=== PATIENT | male | born 1970 | race Hispanic/Latino ===

== ENCOUNTER 2017-05-14 18:29 | Emergency (ER) | payer OTHER ==
[2017-05-14 18:42] VITALS: BP 126/76; PULSE 75; RESP 20; TEMP 97.5; O2SAT 99
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
--- NOTE | 2017-05-15 12:43 | RAD ---
PROCEDURE: Radiographs of the Chest and Left Ribs. HISTORY: rib injury COMPARISON: None available. TECHNIQUE: Frontal radiograph of the chest and multiple oblique radiographs of the left ribs were obtained. FINDINGS: LEFT RIBS: No fracture or focal lesion visualized. LUNGS: Clear. PLEURA: No pneumothorax or pleural fluid. CARDIOVASCULAR: Normal sized heart. No pulmonary vascular congestion. OTHER FINDINGS: None. IMPRESSION: Unremarkable radiographs of the chest and left ribs. No left rib fracture.
== END 2017-05-14 20:05 | disposition home or self-care (01) ==
LOC: H.ER 18:29
DX: S29.9XXD Unspecified injury of thorax, subsequent encounter (principal); V89.2XXD Person injured in unspecified motor-vehicle accident, traffic, subsequent encounter
CPT/HCPCS: 71101; 96372; 99282; J1885

== ENCOUNTER 2017-11-23 10:29 | Emergency (ER) | payer OTHER ==
[2017-11-23 10:38] VITALS: BP 106/68; PULSE 64; TEMP 97; O2SAT 99
[2017-11-23 10:39] VITALS: BMI 22.2
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
--- NOTE | 2017-11-23 11:45 | RAD ---
PROCEDURE: Right Wrist Radiographs. HISTORY: fall, medial wrist pain COMPARISON: None. FINDINGS: BONES: Nondisplaced triquetrum fracture. JOINTS: Unremarkable. SOFT TISSUES: Dorsal soft tissue swelling. OTHER FINDINGS: None. IMPRESSION: Nondisplaced triquetrum fracture.
--- NOTE | 2017-11-23 11:46 | RAD ---
PROCEDURE: Right Hand Radiographs. HISTORY: Hand injury COMPARISON: None. FINDINGS: BONES: Nondisplaced triquetral fracture. JOINTS: Unremarkable. SOFT TISSUES: Dorsal wrist soft tissue swelling. OTHER FINDINGS: None. IMPRESSION: Nondisplaced triquetrum fracture.
[2017-11-23 12:00] VITALS: RESP 16
== END 2017-11-23 13:28 | disposition home or self-care (01) ==
LOC: H.ER 10:29
DX: S62.116A Nondisplaced fracture of triquetrum [cuneiform] bone, unspecified wrist, initial encounter for closed fracture (principal); W19.XXXA Unspecified fall, initial encounter; Y92.89 Other specified places as the place of occurrence of the external cause

== ENCOUNTER 2018-08-22 01:15 | Emergency (ER) | payer SELFPAY ==
[2018-08-22 01:16] VITALS: BMI 22.2
[2018-08-22 01:57] VITALS: BP 108/64; PULSE 76; RESP 18; TEMP 98.5; O2SAT 96
[2018-08-22] MEDS ORDERED: Lidocaine/Epi 1% 1:100000 20 ML IJ ONE (02:08)
[2018-08-22] MEDS ORDERED: Lidocaine 1% w Epi 1:100,000 Inj ONE (02:18)
--- NOTE | 2018-08-22 02:41 | ED PDOC ---
HPI: Skin/Bite Injury Time Seen by Provider: 08/22/18 01:59 Chief Complaint (Nursing): Abnormal Skin Integrity Chief Complaint (Provider): cat scratch to face History Per: Patient History/Exam Limitations: no limitations Onset/Duration Of Symptoms: Hrs Additional Complaint(s): 48 y/o M with no PMH who presents with laceration to lip from cat scratch. Pt has been cat sitting and the cat randomly attacked the patient tonight, unprovoked. Cat is known to patient and is up to date on vaccines. Pt is unsure of last tetanus vaccine. Denies dizziness, fall, VAUGHN, difficulty swallowing. He has minimal pain and has not taken anything for pain since occurrence. He placed an ointment on his lip on his way to ER. - Animal Bite Description Of The Animal: Neighbor's Pet Animal Appears: Well Animal's Immunization Status: UTD Past Medical History Reviewed: Historical Data, Nursing Documentation, Vital Signs Vital Signs: Last Vital Signs Temp 98.5 F 08/22/18 01:54 Pulse 76 08/22/18 01:54 Resp 18 08/22/18 01:54 BP 108/64 08/22/18 01:54 Pulse Ox 96 08/22/18 01:54 - Medical History PMH: No Chronic Diseases - Surgical History Surgical History: No Surg Hx - Family History Family History: States: Unknown Family Hx - Social History Current smoker - smoking cessation education provided: No Alcohol: None - Home Medications Home Medications: Ambulatory Orders Medication Instructions Recorded Ketorolac Tromethamine [Toradol] 10 mg PO TID #20 cap 05/14/17 Ibuprofen [Motrin Tab] 600 mg PO Q8 PRN #15 tab 11/23/17 Doxycycline Hyclate [Doryx] 100 mg PO BID 7 Days cap 08/22/18 - Allergies Allergies/Adverse Reactions: Allergies Allergy/AdvReac Type Severity Reaction Status Date / Time No Known Allergies Allergy Verified 08/22/18 01:54 Physical Exam - Reviewed Nursing Documentation Reviewed: Yes Vital Signs Reviewed: Yes - Physical Exam Appears: Positive for: Non-toxic Head Exam: Negative for: ATRAUMATIC (approximately 1.5cm vertical linear lac eration to cameron border of Right upper lip, no bleeding. ) Eye Exam: Positive for: EOMI, Conjunctival injection (B/L) ENT: Positive for: Normal ENT Inspection Neck: Positive for: Supple - ECG O2 Sat by Pulse Oximetry: 96 Medical Decision Making Medical Decision Making: lac repair Tetanus vaccine Disposition - Clinical Impression Clinical Impression: Lip laceration - Patient ED Disposition Is Patient to be Admitted: No Counseled Patient/Family Regarding: Diagnosis, Need For Followup - Disposition Referrals: [facility] [Outside] Disposition: Routine/Home Disposition Time: 04:14 Condition: STABLE Additional Instructions: You have [address] that will need to be removed in 5 - 7 days (either return to ER or can be done by PMD). Remove bandage in approximately 24hrs and clean area gently with soap and water. Then leave open to the air and use antibiotic ointment (Bacitracin or Neosporin) daily. Return to ER if you notice redness at site, pus drainage, fever, chills. Care with eating/chewing in the next 24 - 48hrs as can re-open wound. Use Ibuprofen or Tylenol for pain. Prescriptions: Doxycycline Hyclate [Doryx] 100 mg PO BID 7 Days cap Instructions: Laceration Repair With Stitches (DC) Forms: [employer] (Hebrew) Print Language: GREEK Procedure: Wound Repair - Time Out Time Out: Side verified - Procedure Procedure: Wound Repair: 2cm vertical laceration under tension - Performed by Performed by: Mid-level Provider - Indications Indication(s):: Laceration - Location Location:: Right, Face, Lip Dimensions Length cm: 2cm - Anesthetic Technique Anesthetic Technique: Topical Local/Regional Anesthetic:: Lidocaine 1% w/epi - Wound Examination Wound Examination:: Edema - Debris Debris:: None - Irrigated Irrigated with ml of normal saline: 200 under pressure - Complexity Complexity:: Simple (one layer) - Wound repair method Sutures:: # (3), Size (6-0), Type (Ethilon) - Complications Complications: none - Patient tolerated procedure Patient Tolerated Procedure:: Well
[2018-08-22] MEDS ORDERED: Tdap Vaccine 0.5 ml Vial (10-64 yrs) IM ONE (02:44)
== END 2018-08-22 03:43 | disposition home or self-care (01) ==
LOC: H.ER 01:15
DX: S01.511A Laceration without foreign body of lip, initial encounter (principal); Z23 Encounter for immunization; W55.03XA Scratched by cat, initial encounter